=== PATIENT | female | born 1955 | race Caucasian/White ===

== ENCOUNTER → 2019-03-21 | Outpatient (CLI) | payer MEDICARE ==
--- NOTE | 2019-03-21 17:20 | RAD ---
EXAM: Right foot, 3 views. HISTORY: Pain. COMPARISON: None. FINDINGS: 3 views of the right foot are obtained. There is no fracture, dislocation or subluxation. There is a small plantar spur. IMPRESSION: No acute osseous finding. Electronically signed by: Lorena Contreras MD (03/21/2019 5:17 PM) [facility]
== END | disposition home or self-care (01) ==
LOC: DXRAD 15:02
PROVIDERS: ATTEND Physician Assistant Medical
DX: M77.51 Other enthesopathy of right foot and ankle (principal)
CPT/HCPCS: 73630